=== PATIENT | male | born 1960 | race Two or more races ===

== ENCOUNTER 2020-07-21 18:23 | Emergency (ER) | payer OTHER, SELFPAY ==
[2020-07-21 18:33] VITALS: BP 170/90; PULSE 74; RESP 20; TEMP 36.6; O2SAT 98; BMI 28.3
--- NOTE | 2020-07-21 19:00 | XR_ITS ---
EXAMINATION: XR ELBOW, RIGHT CLINICAL INFORMATION: Fall. COMPARISON: None TECHNIQUE: Three views of the right elbow. No true lateral view was performed. FINDINGS: The bones and soft tissues are normal. There is no fracture. Alignment is anatomic. Joint spaces are maintained. XR/XR elbow RT min 3V IMPRESSION: No acute abnormality of the right elbow.
--- NOTE | 2020-07-21 19:00 | XR_ITS ---
EXAMINATION: XR SHOULDER, RIGHT CLINICAL INFORMATION: Fall. Pain. COMPARISON: None TECHNIQUE: Three views of the right shoulder. FINDINGS: There is anterior dislocation of the humeral head relative to glenoid. There is a Hill-Sachs impaction fracture deformity of the superolateral humeral head there are a few small calcifications or bone fragments adjacent to the fracture which may be chip fracture fragments or tendon calcification. The acromioclavicular joint is normal. XR/XR shoulder RT min 2V IMPRESSION: Anterior dislocation of the humerus. Hill-Sachs impaction fracture deformity of the superolateral humeral head.
--- NOTE | 2020-07-21 19:25 | XR_ITS ---
EXAMINATION: XR SHOULDER, RIGHT CLINICAL INFORMATION: Shoulder dislocation reduction COMPARISON: Prior exam of the right shoulder today TECHNIQUE: Single frontal view portable of the right shoulder. FINDINGS: Previously seen shoulder dislocation has been successfully reduced. Hill-Sachs impaction fracture of the superolateral humeral head again redemonstrated. There are small ossification or calcification adjacent to the fracture site which could be multiple small chip fractures versus tendon calcification. XR/XR shoulder RT 1V IMPRESSION: Successful reduction of shoulder dislocation.
--- NOTE | 2020-07-21 19:27 | PC.NURSE ---
PT LEFT SHOULDER PUT BACK INTO PLACE PER ALTAGRACIA MAURO. IMMOBILIZER IN PLACE REPEAT IMAGING SHOWED SHOULDER BACK INTO JOINT.
--- NOTE | 2020-07-21 19:31 | ED.EXTPRO ---
HPI - Extremity Problem General Chief complaint: Extremity Injury, Upper Stated complaint: ?dislocated shoulder Time Seen by Provider: 07/21/20 19:00 Source: patient Mode of arrival: ambulatory Limitations: no limitations History of Present Illness HPI Narrative: 59-year-old male who denies any significant past medical history presents ambulatory via triage with complaint of right shoulder pain. States he was him to recycle [employer] step console tripped and fell onto his right elbow pushing density shoulder feel like he dislocated his right shoulder. He denies hitting head. Denies any other injury. Denies any hand, wrist, neck had torso back lower extremity injury. MD Complaint: extremity pain Related Data Allergies Allergy/AdvReac Type Severity Reaction Status Date / Time penicillin V Allergy Unknown rash Verified 10/16/19 00:00 Review of Systems Review of Systems: Constitutional: No Weight loss, No Fever, No Chills, No Night Sweats, No Fatigue, No Malaise ENT/Mouth: No Hearing loss, No Ear Pain, No Nasal Congestion, No Sinus Pain, No Hoarseness, No sore throat, No Rhinorrhea, No Swallowing Difficulty Eyes: No Eye Pain, No Swelling, No Redness, No Foreign Body, No Discharge, No Vision Changes Cardiovascular: No Chest Pain, No SOB, No Dyspnea on Exertion, No Orthopnea, No Edema, No Palpitations Respiratory: No Cough, No Sputum, No Wheezing, No Smoke Exposure, No Dyspnea Gastrointestinal: No Nausea, No Vomiting, No Diarrhea, No Constipation, No abdominal Pain, No Hematochezia, No Melena Genitourinary: No Dysuria, No Urinary Frequency, No Hematuria, No Urinary Incontinence Musculoskeletal: No joint pain, No Myalgias, No Joint Swelling Skin: No Skin Lesions, No rash Neuro: No Weakness, No Numbness, No Paresthesias, No Loss of Consciousness, No Dizziness, No Headache Psych: No Social Issues Heme/Lymph: No Bruising, No Bleeding,No Lymphadenopathy Endocrine: No Polyuria, No Polydipsia, No Temperature Intolerance Yes all other systems are reviewed and are negative [facility] Social History Social History Alcohol intake: current Alcohol intake frequency: 0-2 drinks per day Alcohol type: beer Smoked in Last 30 Days: No Use of substances other than those prescribed or required for medical reasons: No Advance Directives: No Advance Directives Information Provided: No Physical Exam Vital Signs: Vital Signs: Last Vital Signs Temp 98.1 F 07/21/20 19:50 Pulse 68 07/21/20 19:50 Resp 16 07/21/20 19:50 BP 142/89 H 07/21/20 19:50 Pulse Ox 94 07/21/20 19:50 Body Mass Index 28.3 Reviewed Const: General: cooperative and healthy appearing; No acute distress or intoxicated appearing Nutritional Appearance: average body habitus Orientation/consciousness: patient oriented x3 HENMT: Head: Yes normal to inspection Ears: hearing grossly normal bilaterally Eyes: General: appearance normal, both eyes and all related structures Visual Pritchett: normal visual pritchett by confrontation Neck: Neck: Yes normal visual inspection, No positive Brudzinski's sign, No positive Kernig's sign and No tender Thyroid: Thyroid normal Chest: Chest palpation & inspection: normal inspection of the chest Resp: Effort & Inspection: normal respiratory effort Cardio: Jugular venous distension: no JVD GI: Inspection: Yes normal to inspection Percussion: Yes normal to percussion Auscultation: normal bowel sounds : General: Yes no CVA tenderness Back/Spine/Pelvis: Back: no CVA tenderness Skin: General skin exam: no rashes or lesions noted Neuro: General: patient oriented x3 Extrem: General: Yes normal to inspection Right upper extremity: shoulder/upper arm Details: tenderness and abnormal ROM (Probable more anteriorly consistent with anterior dislocation) Course Course Course Narrative: Successful reduction of the right shoulder anterior dislocation, Hill-Sachs impaction fracture placed in a sling. Case discussed with Orthopedic recommendation for sling and outpatient follow-up in office. Findings/plan reviewed with patient. Agreeable. Stable for discharge. Procedures Orthopedic Joint Reduction Joint #1: Side: right Joint Reduction Location: shoulder Shoulder Technique Used (if applicable): traction/counter-traction and external rotation Technique used: traction/counter-traction Post-reduction neuro exam: intact Post-reduction vascular: intact Post Reduction X-Ray Obtained: Yes Post Reduction X-Ray Results: reduced Splint Applied: Yes Patient Tolerated Procedure: well Additional Comments: Evaluate patient ordered upon arrival x-ray done showed dislocation with Hill-Sachs type fracture. Moved to bed 18 for sedation for reduction her he initially wanted me to try this without sedation or medication to see if you do well as he likes to avoid medication and with single smooth traction/counter traction external rotation of the shoulder this was reduced with ease. Post reduction x-rays were done. MDM - Extremity (Nontraumatic) Imaging Data Elbow/shoulder x-ray: Radiologist's impression: [address] [address] XRay Report Signed Patient: Humberto PorterMR#: [id number] : 9Acct:[id number] Age/Sex: 59 / MADM Date: 07/21/20 Loc: [facility].ED Attending Dr: Ordering Physician: Pollo Arnett NP Date of Service: 07/21/20 Procedure(s): XR elbow RT min 3V Accession Number(s): [id number] cc: Pollo Arnett RESEARCH TECHNOLOGIST~ EXAMINATION: XR ELBOW, RIGHT CLINICAL INFORMATION: Fall. COMPARISON: None TECHNIQUE: Three views of the right elbow. No true lateral view was performed. FINDINGS: The bones and soft tissues are normal. There is no fracture. Alignment is anatomic. Joint spaces are maintained. XR/XR elbow RT min 3V IMPRESSION: No acute abnormality of the right elbow. Right shoulder Impression; Anterior dislocation of the humerus. Hill-Sachs impaction fracture deformity of the superior lateral humeral head. Dictated By:BUDDY REEDER MD Signed By:<Electronically signed by BUDDY REEDER MD in OV>07/21/202002 DD/ 99 TD/TT: Freelance Web Designer: VIANEY Post reduction shoulder x-ray: Radiologist's impression: [address] [address] XRay Report Signed Patient: Humberto PorterMR#: [id number] : 9Acct:[id number] Age/Sex: 59 / MADM Date: 07/21/20 Loc: HO.ED Attending Dr: Ordering Physician: Pollo Arnett NP Date of Service: 07/21/20 Procedure(s): XR shoulder RT 1V Accession Number(s): [id number] cc: Pollo Arnett RESEARCH TECHNOLOGIST~ EXAMINATION: XR SHOULDER, RIGHT CLINICAL INFORMATION: Shoulder dislocation reduction COMPARISON: Prior exam of the right shoulder today TECHNIQUE: Single frontal view portable of the right shoulder. FINDINGS: Previously seen shoulder dislocation has been successfully reduced. Hill-Sachs impaction fracture of the superolateral humeral head again redemonstrated. There are small ossification or calcification adjacent to the fracture site which could be multiple small chip fractures versus tendon calcification. XR/XR shoulder RT 1V IMPRESSION: Successful reduction of shoulder dislocation. Dictated By:BUDDY REEDER MD Signed By:<Electronically signed by BUDDY REEDER MD in OV>07/21/202023 DD/ 24 TD/TT: Freelance Web Designer: VIANEY Discharge Plan Discharge Clinical Impression: Anterior shoulder dislocation Qualifiers: Encounter type: initial encounter Laterality: right Qualified Code(s): S43.014A - Anterior dislocation of right humerus, initial encounter Closed Hill-Sachs fracture Qualifiers: Encounter type: initial encounter Laterality: right Qualified Code(s): S42.291A - Other displaced fracture of upper end of right humerus, initial encounter for closed fracture Patient Disposition: Home, Self-Care Instructions: Closed Reduction (ED), Arm Fracture in Adults (ED) Additional Instructions: Ice, elevate Use sling for comfort Leave in place until you follow-up with orthopedics Called orthopedics tomorrow to follow-up on Saturday or Saturday Tylenol or ibuprofen for pain or discomfort [id number] Thank you Referrals: Huseyin Mtz MD [Physician] - 3 days
[2020-07-21 19:50] VITALS: BP 142/89; PULSE 68; RESP 16; TEMP 36.7; O2SAT 94
== END 2020-07-21 21:01 | disposition home or self-care (01) ==
PROVIDERS: Emergency Provider Internal Medicine; PCP Internal Medicine
DX: S43.014A Anterior dislocation of right humerus, initial encounter (principal); S42.291A Other displaced fracture of upper end of right humerus, initial encounter for closed fracture; W01.198A Fall on same level from slipping, tripping and stumbling with subsequent striking against other object, initial encounter; Y93.89 Activity, other specified; Y92.480 Sidewalk as the place of occurrence of the external cause; Y99.9 Unspecified external cause status
CPT/HCPCS: 23650; 73020; 73030; 73080; 99284

== ENCOUNTER → 2020-07-26 12:37 | Outpatient (BNVA) | payer OTHER, SELFPAY | PROVIDERS: PCP Internal Medicine; Visit Provider Physician Assistant | DX: Z76.89 Persons encountering health services in other specified circumstances (principal) ==

== ENCOUNTER 2020-08-26 09:38 | Outpatient (REF) | payer OTHER, SELFPAY ==
--- NOTE | 2020-08-26 09:43 | XR_ITS ---
EXAMINATION: XR SHOULDER, RIGHT CLINICAL INFORMATION: Right shoulder dislocation. COMPARISON: None TECHNIQUE: AP external rotation, Grashey, scapular Y, and axillary views of the right shoulder. FINDINGS: There is no visible acute fracture, dislocation or subluxation seen. There are small enthesophytes along the greater tuberosity. There is inferior AC joint moderate spurring. The soft tissues are normal. The AC joint is normal. XR/XR shoulder RT min 2V IMPRESSION: Moderate inferior AC joint spurring. No visible acute fracture or dislocation seen.
== END 2020-08-26 09:39 | disposition home or self-care (01) ==
LOC: HO.XRAY 09:38
PROVIDERS: PCP Internal Medicine; Visit Provider Physician Assistant
DX: S43.004A Unspecified dislocation of right shoulder joint, initial encounter (principal); X58.XXXA Exposure to other specified factors, initial encounter; Y93.9 Activity, unspecified; Y92.9 Unspecified place or not applicable; Y99.8 Other external cause status; F17.210 Nicotine dependence, cigarettes, uncomplicated
CPT/HCPCS: 73030

== ENCOUNTER → 2020-09-28 09:53 | Outpatient (BNVA) | payer OTHER, SELFPAY | PROVIDERS: Visit Provider Physician Assistant ==

== ENCOUNTER 2021-08-26 08:56 | Outpatient (REF) | payer OTHER, SELFPAY ==
[2021-08-26 11:16] LABS: MANUAL DIFF FLAG NO
[2021-08-26 11:22] LABS: Basophils Absolute Auto 0.1 X10*3/uL (0.0-0.2); Basophils Percent Auto 0.7 % (0-2); Eosinophils Absolute Auto 0.2 X10*3/uL (0.0-0.4); Eosinophils Percent Auto 2.6 % (0-4); Hemoglobin 16.2 g/dl (14.0-18.0); Imm Gran Abs Auto 0.09 X10*3/uL (0.00-0.03); Imm Gran Pct Auto 1.1 % (0.0-0.4); Lymphocytes Absolute Auto 2.5 X10*3/uL (1.2-4.9); Lymphocytes Percent Auto 29.8 % (20-40); Mean Corpuscular HGB Conc 33.1 g/dl (31.0-36.0); Mean Corpuscular Hemoglobin 29.7 pg (27.0-33.0); Mean Corpuscular Volume 89.9 fL (80.0-98.0); Mean Platelet Volume 9.8 fL (9.4-12.4); Monocytes Absolute Auto 1.1 X10*3/uL (0.1-1.2); Monocytes Percent Auto 12.6 % (2-11); Neutrophils Absolute Auto 4.5 x10*3/uL (2.0-8.3); Neutrophils Percent Auto 53.2 % (45-73); Platelet Count 209 X10*3/uL (160-400); Red Blood Count 5.45 X10*6/uL (4.60-5.80); Red Cell Distribution Width 13.8 % (11.0-16.0); White Blood Count 8.4 X10*3/uL (4.8-10.8)
[2021-08-26 11:56] LABS: Alanine Aminotransferase 50 U/L (0-40); Albumin Level 4.4 g/dL (3.5-5.0); Alkaline Phosphatase 79 U/L (39-117); Anion Gap 13 (12-20); Aspartate Amino Transferase 40 U/L (5-37); Bilirubin Total 1.1 mg/dL (0.0-1.0); Blood Urea Nitrogen 16 mg/dL (9-16); Calcium 9.5 mg/dL (8.4-10.2); Carbon Dioxide 27 mmol/L (22-29); Chloride 100 mmol/L (96-108); Cholesterol 173 mg/dL; Estimated Glomerular Filt Rate > 60; Glucose Fasting 110 mg/dL (60-99); HDL Cholesterol 33 mg/dL; LDL Cholesterol Calculated 112 mg/dl; Potassium 4.9 mmol/L (3.3-5.1); Sodium 135 mmol/L (135-145); Total Protein 7.7 g/dL (6.5-8.0); Triglycerides 144 mg/dL
[2021-08-26 12:17] LABS: Vitamin D 25-OH Total 28.1 ng/mL (>30)
== END 2021-08-26 08:57 | disposition home or self-care (01) ==
LOC: HO.HMGCLDS 08:56
PROVIDERS: Visit Provider Internal Medicine
DX: Z00.01 Encounter for general adult medical examination with abnormal findings (principal); Z12.5 Encounter for screening for malignant neoplasm of prostate; E78.2 Mixed hyperlipidemia; I10 Essential (primary) hypertension; R73.01 Impaired fasting glucose
CPT/HCPCS: 36415; 80053; 80061; 82306; 84153; 85025

== ENCOUNTER 2022-12-15 06:42 | Outpatient (REF) | payer OTHER, SELFPAY ==
[2022-12-15 11:38] LABS: Estimated Average Glucose 120 mg/dL; Hemoglobin A1c % 5.8 %
[2022-12-15 11:51] LABS: Alanine Aminotransferase 75 U/L (0-40); Albumin Level 4.5 g/dL (3.5-5.0); Alkaline Phosphatase 78 U/L (39-117); Anion Gap 14 (12-20); Aspartate Amino Transferase 53 U/L (5-37); Bilirubin Total 1.4 mg/dL (0.0-1.0); Blood Urea Nitrogen 17 mg/dL (9-16); Calcium 9.3 mg/dL (8.4-10.2); Carbon Dioxide 23 mmol/L (22-29); Chloride 103 mmol/L (96-108); Cholesterol 199 mg/dL; Estimated Glomerular Filt Rate > 60; Glucose Fasting 123 mg/dL (60-99); HDL Cholesterol 33 mg/dL; LDL Cholesterol Calculated 124 mg/dl; Potassium 4.8 mmol/L (3.3-5.1); Sodium 135 mmol/L (135-145); Total Protein 7.5 g/dL (6.5-8.0); Triglycerides 210 mg/dL
[2022-12-15 12:10] LABS: PSA,Total (Free>4and<10) 0.61 ng/mL (0.00-4.00); Vitamin D 25-OH Total 22.4 ng/mL (>30)
== END 2022-12-15 06:43 | disposition home or self-care (01) ==
LOC: HO.HMGCLDS 06:42
PROVIDERS: PCP Internal Medicine; Visit Provider Internal Medicine
DX: Z00.01 Encounter for general adult medical examination with abnormal findings (principal); Z12.5 Encounter for screening for malignant neoplasm of prostate; I10 Essential (primary) hypertension; R73.01 Impaired fasting glucose; E55.9 Vitamin D deficiency, unspecified; E78.2 Mixed hyperlipidemia
CPT/HCPCS: 36415; 80053; 80061; 82306; 83036; 84153

== ENCOUNTER 2023-05-15 06:26 | Outpatient (REF) | payer OTHER, SELFPAY ==
[2023-05-15 11:44] LABS: Estimated Average Glucose 117 mg/dL; Hemoglobin A1c % 5.7 % (<6.0)
[2023-05-15 12:03] LABS: Alanine Aminotransferase 76 U/L (0-40); Albumin Level 4.2 g/dL (3.5-5.0); Alkaline Phosphatase 77 U/L (39-117); Anion Gap 14 (12-20); Aspartate Amino Transferase 52 U/L (5-37); Bilirubin Total 0.6 mg/dL (0.0-1.0); Blood Urea Nitrogen 11 mg/dL (9-16); Calcium 9.2 mg/dL (8.4-10.2); Carbon Dioxide 22 mmol/L (22-29); Chloride 104 mmol/L (96-108); Cholesterol 177 mg/dL (<200); Estimated Glomerular Filt Rate > 60; Gamma Glutamyl Transpeptidase 145 U/L (11-51); Glucose Fasting 131 mg/dL (60-99); HDL Cholesterol 31 mg/dL (>40); LDL Cholesterol Calculated 98 mg/dL (<100); Potassium 4.3 mmol/L (3.3-5.1); Sodium 136 mmol/L (135-145); Total Protein 7.4 g/dL (6.5-8.0); Triglycerides 242 mg/dL (<150)
[2023-05-15 12:21] LABS: Vitamin D 25-OH Total 38.3 ng/mL (>30)
== END 2023-05-15 06:27 | disposition home or self-care (01) ==
LOC: HO.CHCLDS 06:26
PROVIDERS: Visit Provider Internal Medicine
DX: F10.90 Alcohol use, unspecified, uncomplicated (principal); E55.9 Vitamin D deficiency, unspecified; I10 Essential (primary) hypertension; R73.01 Impaired fasting glucose; E78.2 Mixed hyperlipidemia
CPT/HCPCS: 36415; 80053; 80061; 82306; 82977; 83036

== ENCOUNTER 2023-05-15 09:32 | Outpatient (AMB) | payer OTHER, SELFPAY ==
--- NOTE | 2023-05-15 10:11 | A.OFFPC_ITS ---
Vital Signs 05/15/23 10:13 Height 5 ft 4 in Weight 181 lb BMI 31.1 BP 135/70 Blood Pressure Location Rt brachial Position Sitting Pulse 79 Pulse Source Pulse Oximeter Pulse Oximetry (%) 97 Oxygen Delivery Method Room Air Intake Visit Reasons: 6 month Follow up Intake Note: Pt is here today for a 6 mo. f/u: Pt had labs done this morning Allergies penicillin V Allergy (Unknown, Verified 05/15/23 10:39) rash Medication List - Last Reconciled 05/15/23 by Sridevi Garcia MD lisinopril 20 mg PO DAILY Tobacco use date assessed: 05/15/23 Dental Screening Dental Screen Date: 05/15/23 Did you have a dental visit in the last 12 months?: No Was dental information given to patient?: No HPI 6 month Follow up HPI Details 63-year-old male with hypertension, impa ired fasting glucose and mixed dyslipidemia, today for follow-up. He states that he has been feeling well, but admits to not following any particular diet nor has she been getting any regular exercise except from what he does at work. He continues to drink daily at least 2 beers a day. Latest fasting labs showed elevated fasting glucose but hemoglobin A1c within normal limits, fasting lipids are within normal limits except for elevated triglycerides and noted to have persistently elevated transaminase levels and elevated GGT. [facility] Medical History (Updated 02/16/24 @ 16:07 by Sridevi Garcia MD) Elevated serum GGT level Elevated transaminase level Dislocation of right shoulder joint Alcohol use disorder Skin lesion of foot Vitamin D deficiency Annual visit for general adult medical examination with abnormal findings Impaired fasting glucose Mixed dyslipidemia Essential hypertension Surgical History Hx of colonoscopy History of appendectomy Family History Other Substance use disorder Social History Housing: House Alcohol intake: current Alcohol intake frequency: 0-2 drinks per day Alcohol type: beer Patient Tobacco Use Status: Current everyday Tobacco user Cigarette Packs Per Day: 0.5 e-Cigarette/Vaping Use: Never Used Current occupational status: employed Current occupation: lt handed, picking and packing Cognitive needs: No Hearing needs: No Vision needs: No Questionnaire Thrive Questionnaire Date Thrive assessed: 12/14/22 MIRIAN-7 AMB Questionnaire MIRIAN-7 Date MIRIAN - 7 assessed: 12/14/22 Source: Developed by Drs. Carlos Hernandez, Jessica Wilson, Jonny Blackwell and colleagues, with an educational zoie from [employer]. Review of Systems Const Denies fatigue, Denies fever(s), Denies headache(s) and Denies weakness Eyes Denies change in vision ENT Denies dizziness, Denies headache(s), Denies nasal congestion, Denies nasal discharge and Denies sore throat Card Denies chest pain, Denies lightheadedness, Denies palpitations and Denies dyspnea Resp Denies chest congestion, Denies cough, Denies dyspnea and Denies wheezing GI Denies abdominal pain, Denies change in bowel habits and Denies heartburn Denies dysuria, Denies urinary frequency and Denies urinary urgency Musc Reports arthralgias (Right shoulder, followed by ortho) and Reports stiffness Skin/Breast Denies lesions and Denies rash Neuro Denies dizziness, Denies headache(s) and Denies weakness Psych Reports as per HPI Endo Denies fatigue, Denies polydipsia, Denies polyuria and Denies palpitations Sergio/Lymph Denies easy bruising Aller/Immun Denies seasonal rhinorrhea and Denies wheezing Physical exam (Primary Care) Vital Signs: Last Vital Signs Pulse 79 05/15/23 10:13 BP 135/70 05/15/23 10:13 Pulse Ox 97 05/15/23 10:13 Oxygen Delivery Method Room Air 05/15/23 10:13 BMI result Body Mass Index 31.1 Tobacco/Smoking Status: Tobacco use Status Tobacco use date assessed 05/15/23 05/15/23 10:14 Patient Tobacco Use Status Current everyday Tobacco 05/15/23 10:11 e-Cigarette/Vaping Use Never Used 05/15/23 10:11 Thrive Assessment: Date of Thrive Assessment Date Thrive assessed 12/14/22 05/15/23 10:11 Const General: comfortable, no acute distress and alert Nutritional Appearance: obese Orientation/consciousness: patient oriented x3 HENMT Head: Yes normocephalic Ears: hearing grossly normal bilaterally, external ears normal, TM's normal bilaterally and EAC's normal General nose exam: Normal external nose present Face and sinus: Yes face symmetric Mouth: Normal oral and palatal mucosa present and moist mucous membranes Eyes General: appearance normal, both eyes and all related structures Neck Neck: Yes full ROM and Yes no lymphadenopathy Thyroid: Thyroid normal Resp Effort & Inspection: normal respiratory effort and able to speak in complete sentences Auscultation: clear to auscultation bilaterally Cardio Rate: regular rate Rhythm: regular rhythm Heart sounds: S1 normal heart sound present and S2 normal heart sound present GI Inspection: Yes obesity Palpation (GI): Soft to palpation, nontender, no guarding and no masses Auscultation: normal bowel sounds General: Yes no CVA tenderness Male General Exam: Yes normal external exam Back/Spine/Pelvis Back: no CVA tenderness and No back tenderness Neuro General: patient oriented x3, gait normal, moves all extremities, Normal light touch and pain sensation, no focal motor deficits and CN's II-XI intact bilaterally Extrem General: Yes full ROM, Yes no joint enlargement, Yes no clubbing, cyanosis or edema, Yes no calf tenderness and Yes normal gait Psych Appearance: grossly normal Mental Status: mental status grossly normal Speech and movement: Normal speech and movement present Affect: normal affect Attitude: cooperative Thought process: Normal thought process present Results Reviewed Results Reviewed: Name: Humberto Porter Age/Sex: 62/M : 1960 Unit#: [id number] Attend Dr: Sridevi Garcia MD Re05/15/23 Status: DEP REF Location: [facility] Disch: SPEC : [id number] KATHRINE: 05/15/23 STATUS: COMP REQ : [id number] RECD: 05/15/[address]: Sridevi Garcia MD COMP: 05/15/231 ENTERED: 05/15/[address]: ORDERED: CMP Fast, GGT, Lipid Panel, Vitamin D 25-OH Test Result Flag Reference Sodium 136 135-145 mmol/L Potassium 4.3 3.3-5.1 mmol/L CL 104 96-108 mmol/L CO2 22 22-29 mmol/L Gap 14 12-20 BUN 11 9-16 mg/dL Creat 0.74 0.5-1.4 mg/dL EGFR > 60 NOTE: For -Marshallese individuals, multiply the result by 1.210. Chronic Kidney Disease: Estimated GFR < 60 mL/min/1. 73m2 Severe Kidney Disease: Estimated GFR < 15 mL/min/1.73m2 FBS 131 H 60-99 mg/dL A fasting glucose of 126 mg/dl or greater on more than one occasion is considered diagnostic of diabetes. CA 9.2 8.4-10.2 mg/dL Total Bili 0.6 0.0-1.0 mg/dL GGT 145 H 11-51 U/L AST (GOT) 52 H 5-37 U/L ALT (GPT) 76 H 0-40 U/L Protein, Total 7.4 6.5-8.0 g/dL Alb 4.2 3.5-5.0 g/dL Triglyceride 242 H <150 mg/dL Desirable Triglyceride: less than 150 mg/dL Borderline High Triglyceride 150-199 mg/dL High Triglyceride: 200-499 mg/dL Very High Triglyceride: greater than or equal to 5OO mg/dL Cholesterol 177 <200 mg/dL Desirable Cholesterol: less than 200 mg/dL Borderline High Cholesterol: 200-239 mg/dL High Cholesterol: greater than 239 mg/dL LDL Calculated 98 <100 mg/dL Desirable LDL: less than 100 mg/dL Near Optimal/Above Optimal LDL: 110-129 mg/dL Borderline High LDL: 130-159 mg/dL High LDL: 160-189 mg/dL Very High LDL: greater than or equal to 190 mg/dL HDL 31 L >40 mg/dL Desirable HDL: greater than 40 mg/dL Note: This HDL assay may give artificially low results in patients with liver disease. Alk Phos 77 39-117 U/L Vit D 25-OH Tot 38.3 >30 ng/mL Health Based Reference Values* < 20 ng/mL Deficient 20-30 ng/mL Insufficient > 30 ng/mL Sufficient Laboratory Tests 05/15/23 06:38 Estimat Average Glucose 117 Hemoglobin A1c % 5.7 Elevated GGT elevated GGT Assessment and Plan Assessment & Plan (1) Essential hypertension: Code(s): I10 - Essential (primary) hypertension Plan: Blood pressure at goal of less than 130/80. Continue with lisinopril 20 mg daily. Reinforced importance of following a low sodium diet, avoidance of alcohol use, getting regular exercise, and lowering stress levels. (2) Mixed dyslipidemia: Code(s): E78.2 - Mixed hyperlipidemia Plan: Reviewed recent fasting lipid profile with patient with levels within normal limits except for elevated triglycerides . Stressed importance of abstinence from alcohol, in addition to adherence to low-cholesterol diet and regular exercise, at least 30 minutes 3 to 4 times a week. Advised patient to make healthy food choices, eat more fruits, vegetables, whole grains, wild caught fish and low-fat dairy. Limit amount of meat and fried or fatty food products, as well as processed foods and fast foods. (3) Impaired fasting glucose: Code(s): R73.01 - Impaired fasting glucose Plan: Your previous fasting blood sugars were elevated above 100 mg/dL. Latest labs showed hemoglobin A1c within normal limits. Impaired glucose metabolism increases the risk for developing diabetes mellitus type 2, as well as heart attack and stroke later on. Lifestyle changes that promotes weight loss, avoidance of alcohol, healthy eating habits, and regular exercise are important, and can prevent the progression to diabetes (4) Elevated transaminase level: Code(s): R74.01 - Elevation of levels of liver transaminase levels Plan: Advise patient to cut back or abstain from all alcohol use as recent labs showed presence of liver damage likely from alcohol use, and increases risk for developing pancreatitis later (5) Elevated serum GGT level: Code(s): R74.8 - Abnormal levels of other serum enzymes Plan: Advised patient to abstain will start slowly cutting back from all alcohol use, as recent labs showed presence of liver damage likely from alcohol use, which also increases risk for pancreatitis (6) Alcohol use disorder: Code(s): F10.90 - Alcohol use, unspecified, uncomplicated Orders: Orders Hemoglobin A1c 12/11/23 E55.9 - Vitamin D deficiency, unspecified, R73.01 - Impaired fasting glucose, F10.90 - Alcohol use, unspecified, uncomplicated, E78.2 - Mixed hyperlipidemia, I10 - Essential (primary) hypertension Lipid Panel 12/11/23 E55.9 - Vitamin D deficiency, unspecified, R73.01 - Impaired fasting glucose, F10.90 - Alcohol use, unspecified, uncomplicated, E78.2 - Mixed hyperlipidemia, I10 - Essential (primary) hypertension Vitamin D 25-OH Total 12/11/23 E55.9 - Vitamin D deficiency, unspecified, R73.01 - Impaired fasting glucose, F10.90 - Alcohol use, unspecified, uncomplicated, E78.2 - Mixed hyperlipidemia, I10 - Essential (primary) hypertension Comprehensive Gill. Panel Fast 12/11/23 E55.9 - Vitamin D deficiency, unspecified, R73.01 - Impaired fasting glucose, F10.90 - Alcohol use, unspecified, uncomplicated, E78.2 - Mixed hyperlipidemia, I10 - Essential (primary) hypertension Medications: Refilled lisinopril 20 mg PO DAILY 90 tabs 3RF I10 - Essential (primary) hypertension Coding Level of Care Code Est Pt Level 4 (65926) Diagnoses Essential hypertension I10 Mixed dyslipidemia E78.2 Impaired fasting glucose R73.01 Elevated transaminase level R74.01 Elevated serum GGT level R74.8 Alcohol use disorder F10.90
[2023-05-15 10:13] VITALS: BP 135/70; PULSE 79; O2SAT 97; BMI 31.1
== END 2023-05-15 11:38 | disposition home or self-care (01) ==
PROVIDERS: Visit Provider Internal Medicine
DX: I10 Essential (primary) hypertension (principal); E78.2 Mixed hyperlipidemia; R73.01 Impaired fasting glucose; R74.01 Elevation of levels of liver transaminase levels; R74.8 Abnormal levels of other serum enzymes; F10.90 Alcohol use, unspecified, uncomplicated
CPT/HCPCS: 99499

== ENCOUNTER 2024-06-17 11:54 | Outpatient (AMB) | payer OTHER, SELFPAY ==
--- NOTE | 2024-06-17 12:00 | A.OFFVIS_ITS ---
Intake Vital Signs 06/17/24 12:12 Height 5 ft 4 in Weight 186 lb 2 oz BMI 31.9 BP 158/92 H Blood Pressure Location Rt brachial Position Sitting Pulse 88 Pulse Source Pulse Oximeter Pulse Oximetry (%) 96 Oxygen Delivery Method Room Air Intake Visit Reasons: MICHAEL G0438 Allergies penicillin V Allergy (Unknown, Verified 06/17/24 12:34) rash Medication List - Last Reconciled 06/17/24 by Sridevi Garcia MD lisinopril 20 mg PO DAILY Do you need a note to return to daycare/school/sports/work: No HPI SWV G0438 HPI Details AWV ? year old presents for her ? Annual Wellness Visit, initial visit.? Medical / Social History Reviewed? Past Medical History ?Yes . ? [place] of Care / Care Team list updated ?Yes . ? Surgical/Hospitalization History ?Yes . ? Current Medications (including OTC and supplements) ?Yes . ? Family History ?Yes . ? Tobacco Control form ?Yes . ? AUDIT-C (Alcohol use) form ?Yes . ? Illicit drug use in Social History ?Yes . ? Current diagnosis of depression? ?No ? Appropriate PHQ2/PHQ9 completed ?Yes . ? Data entered by ?Vp Director Of Finance and reviewed by provider ? Fall Risk ? Fall History? Have you had any falls with injury in the past year? ?No . ? Have you had two or more falls in the past year? ?No . ? Fall Risk Assessment: ?No falls in the past year . ? HRA filled out by the patient, reviewed by Provider and scanned. ?AWV ? Balance? Romberg ?Yes . ? Tandem walk ?Yes . ? Walk and Turn ?Yes . ? Rise from sit to stand ?Yes . ?Vision? Corrective lens ?Yes ? Vision screen ? Up-to-date, has an appointment Dr. Zurita 12/20/2020 for her vision screening and glaucoma screening ?Hearing? Whisper test ?pass . ?Written Plan?Completed. See Patient Documents.? [facility] Medical History (Updated 02/16/24 @ 16:07 by Sridevi Garcia MD) Elevated serum GGT level Elevated transaminase level Dislocation of right shoulder joint Alcohol use disorder Skin lesion of foot Vitamin D deficiency Annual visit for general adult medical examination with abnormal findings Impaired fasting glucose Mixed dyslipidemia Essential hypertension Surgical History Hx of colonoscopy History of appendectomy Family History Other Substance use disorder Social History Housing: House Alcohol intake: current Alcohol intake frequency: 0-2 drinks per day Alcohol type: beer Patient Tobacco Use Status: Current everyday Tobacco user Cigarette Packs Per Day: 0.5 e-Cigarette/Vaping Use: Never Used Current occupational status: employed Current occupation: lt handed, picking and packing Cognitive needs: No Hearing needs: No Vision needs: No Questionnaire Medicare Wellness Checkup [age] What gender do you identify with?: male During the past 4 weeks, how much have you been bothered by emotional problems such as feeling anxious, depressed, irritable, sad or downhearted, and blue?: not at all During the past 4 weeks, has your physical & emotional health limited your social activities with family, friends, neighbors, or groups?: not at all During the past 4 weeks, how much bodily pain have you generally had?: moderate pain During the past 4 weeks, was someone available to help you if you needed & wanted help?: yes, as much as I wanted During the past 4 weeks, what was the hardest physical activity you could do for at least 2 minutes?: heavy Can you get to places out of walking distance without help? (For eg., can you travel alone on buses, taxis or drive your car?): Yes Can you go shopping for groceries or clothes without someone's help?: Yes Can you prepare your own meals?: Yes Can you do your housework without help?: Yes Because of any health problems, do you need the help of another person with your personal care needs such as eating, bathing, dressing or getting around the house?: No Can you handle your own money without help?: Yes During the past 4 weeks, how would you rate your health in general?: fair During the past 4 weeks how have things been going for you?: good & bad parts about equal Are you having difficulties driving your car?: no Do you always fasten your seat belt when you are in a car?: yes, usually During past 4 weeks, have you been bothered by the following: never: Falling or dizzy when standing up, Sexual problems?, Trouble eating well?, Teeth or denture problems? and Problems using the telephone? and sometimes: Tiredness or fatigue? Have you fallen 2 or more times in the past year?: No Are you afraid of falling?: No Are you a smoker?: yes, but I'm not ready to quit During the past 4 weeks, how many drinks of wine, beer, or other alcoholic beverages did you have?: 10 or more per week Do you exercise for about 20 minutes 3 or more times a week?: no, I usually do not exercise this much Have you been given information to help with the following?: no: Hazards in your house that might hurt you? and no: Keeping track of your medications? How often do you have trouble taking medicines the way you have been told to take them?: I always take medicine as prescribed How confident are you that you can control & manage most of your health problems?: very confident What is your race?: or origin or descent PHQ-9 Over the last 2 weeks, how often have you been bothered by any of the following problems? 1. Little interest or pleasure in doing things: not at all 2. Feeling down, depressed, or hopeless: not at all 3. Trouble falling or staying asleep, or sleeping too much: more than half the days 4. Feeling tired or having little energy: not at all 5. Poor appetite or overeating: not at all 6. Feeling bad about yourself - or that you are a failure or have let yourself or your family down: not at all 7. Trouble concentrating on things, such as reading the newspaper or watching television: not at all 8. Moving or speaking so slowly that other people could have noticed. Or the opposite - being so fidgety or restless that you have been moving around a lot more than usual: not at all 9. Thoughts that you would be better off or of hurting yourself in some way: not at all Total score: 2 Depression Screening Interpretation: Negative Depression Screening Done: Yes 10136 - PHQ-9 Billing: Yes Source: Developed by Drs. Carlos Hernandez, Jessica Wilson, Jonny Blackwell and colleagues, with an educational zoie from [facility]. Physical Exam Vital Signs: Last Vital Signs Pulse 88 06/17/24 12:12 BP 158/92 H 06/17/24 12:12 Pulse Ox 96 06/17/24 12:12 Oxygen Delivery Method Room Air 06/17/24 12:12 BMI result Body Mass Index 31.9 Quality Reporting (2019) Depression/Bipolar (159/160/161/177) PHQ-9: Total score: 2 Coding Additional Codes PHQ-9 - 32057 - PHQ-9 Billing: Yes ([id number])
[2024-06-17 12:12] VITALS: BP 158/92; PULSE 88; O2SAT 96; BMI 31.9
--- NOTE | 2024-06-17 12:37 | MHC.PC.OV ---
Vital Signs 06/17/24 12:12 06/17/24 12:48 Height 5 ft 4 in Weight 186 lb 2 oz BMI 31.9 BP 158/92 H 130/80 Blood Pressure Location Rt brachial Rt brachial Position Sitting Sitting Pulse 88 Pulse Source Pulse Oximeter Pulse Oximetry (%) 96 Oxygen Delivery Method Room Air Intake Visit Reasons: Follow-up hypertension Intake Note: Pt is here today for f/u HTN Allergies penicillin V Allergy (Unknown, Verified 06/17/24 12:34) rash Medication List - Last Reconciled 06/17/24 by Sridevi Garcia MD lisinopril 20 mg PO DAILY Tobacco use date assessed: 05/15/23 Dental Screening Dental Screen Date: 05/15/23 HPI HPI Comments History of Present Illness Details 63-year-old male with past medical history significant for hypertension, mixed dyslipidemia, here today for follow-up. He has been taking his medications as directed, tries to follow recommended diet but not successful at times, and does not have any regular exercise at all. Drinks on a regular basis at least 5-6 drinks 4 times a week and smokes at least half a pack of cigarettes daily. Had recent fasting labs done which [facility] History Elevated serum GGT level Elevated transaminase level Dislocation of right shoulder joint Alcohol use disorder Skin lesion of foot Vitamin D deficiency Annual visit for general adult medical examination with abnormal findings Impaired fasting glucose Mixed dyslipidemia Essential hypertension Surgical History Hx of colonoscopy History of appendectomy Family History Other Substance use disorder Social History Housing: House Alcohol intake: current Alcohol intake frequency: 0-2 drinks per day Alcohol type: beer Patient Tobacco Use Status: Current everyday Tobacco user Cigarette Packs Per Day: 0.5 e-Cigarette/Vaping Use: Never Used Current occupational status: employed Current occupation: lt handed, picking and packing Cognitive needs: No Hearing needs: No Vision needs: No Questionnaire Thrive Questionnaire Date Thrive assessed: 12/14/22 AUDIT C Alcohol Use Questionnaire (AUDIT-C) 1. How often do you have a drink containing alcohol?: 4 or more times a week 2. How many drinks containing alcohol do you have on a typical day when you are drinking?: 5 or 6 3. How often do you have six or more drinks on one occasion?: Daily or almost daily Total Score: 10 Score Reviewed/Action Taken: Yes (Patient strongly advised to quit alcohol intake, declines help in quitting ) MIRIAN-7 AMB Questionnaire MIRIAN-7 Date MIRIAN - 7 assessed: 12/14/22 Source: Developed by Drs. Carlos Hernandez, Jessica Wilson, Jonny Blackwell and colleagues, with an educational zoie from [employer]. Review of Systems Const Denies fatigue, Denies fever(s), Denies headache(s) and Denies weakness Eyes Denies change in vision ENT Denies dizziness, Denies headache(s), Denies nasal congestion, Denies nasal discharge and Denies sore throat Card Denies chest pain, Denies lightheadedness, Denies palpitations and Denies dyspnea Resp Denies chest congestion, Denies cough, Denies dyspnea and Denies wheezing GI Denies abdominal pain, Denies change in bowel habits and Denies heartburn Denies dysuria, Denies urinary frequency and Denies urinary urgency Musc Reports arthralgias (Right shoulder, followed by ortho) and Reports stiffness Skin/Breast Denies lesions and Denies rash Neuro Denies dizziness, Denies headache(s) and Denies weakness Psych Reports as per HPI Endo Denies fatigue, Denies polydipsia, Denies polyuria and Denies palpitations Sergio/Lymph Denies easy bruising Aller/Immun Denies seasonal rhinorrhea and Denies wheezing Physical exam (Primary Care) Vital Signs: Last Vital Signs Pulse 88 06/17/24 12:12 BP 130/80 06/17/24 12:48 Pulse Ox 96 06/17/24 12:12 Oxygen Delivery Method Room Air 06/17/24 12:12 BMI result Body Mass Index 31.9 Tobacco/Smoking Status: Tobacco use Status Tobacco use date assessed 05/15/23 06/17/24 12:38 Patient Tobacco Use Status Current everyday Tobacco 06/17/24 12:38 e-Cigarette/Vaping Use Never Used 06/17/24 12:38 Thrive Assessment: Date of Thrive Assessment Date Thrive assessed 12/14/22 06/17/24 12:38 Advance Care Planning discussion: Completed/Scanned Date of discussion: 06/17/24 Who was present: Patient Forms completed: MOLST Time spent: 16-45 minutes Actual minutes spent: 3 Const General: no acute distress and alert Nutritional Appearance: obese Orientation/consciousness: patient oriented x3 HENMT Head: Yes normocephalic Ears: hearing grossly normal bilaterally, external ears normal, TM's normal bilaterally and EAC's normal General nose exam: Normal external nose present Face and sinus: Yes face symmetric Mouth: Normal oral and palatal mucosa present and moist mucous membranes Eyes General: appearance normal, both eyes and all related structures Neck Neck: Yes full ROM and Yes no lymphadenopathy Thyroid: Thyroid normal Resp Effort & Inspection: normal respiratory effort and able to speak in complete sentences Auscultation: clear to auscultation bilaterally Cardio Rate: regular rate Rhythm: regular rhythm Heart sounds: S1 normal heart sound present and S2 normal heart sound present GI Inspection: Yes obesity Palpation (GI): Soft to palpation, nontender, no guarding and no masses Auscultation: normal bowel sounds General: Yes no CVA tenderness Male General Exam: Yes normal external exam Back/Spine/Pelvis Back: no CVA tenderness and No back tenderness Neuro General: patient oriented x3, gait normal, moves all extremities, Normal light touch and pain sensation, no focal motor deficits and CN's II-XI intact bilaterally Extrem General: Yes full ROM, Yes no joint enlargement, Yes no clubbing, cyanosis or edema, Yes no calf tenderness and Yes normal gait Psych Appearance: grossly normal Mental Status: mental status grossly normal Speech and movement: Normal speech and movement present Affect: normal affect Attitude: cooperative Thought process: Normal thought process present Office Procedures Flu Questionnaire Does the patient have a severe egg allergy?: No Does the patient have severe life threatening allergies?: No Does the patient have a fever or illness today?: No Has the patient ever had Guillain-[place] Syndrome?: No Has the patient ever had any past reaction to a flu shot?: No Immunizations Fluarix Triv [id number] (PF) 45 mcg (15 mcg x 3)/0.5 mL IM syringe Performing Provider: Sridevi Garcia MD Performing Location: [facility] Administered by: Sushma Craft CMA on 06/17/24 13:05 Dose Route Admin Location Dispensed Lot Number Expiration Date NDC Fumigator And Sterilizer 0.5 mL IM Left Deltoid 0.5 mL [id number] 02/08/25 [id number] [employer] VIS Given Date VIS Provided VIS Publication Date 06/17/24 Single Vaccine 21 Eligibility Eligibility Date Funding Source Not VFC Eligible 06/17/24 Private Results Reviewed Results Reviewed: Name: Humberto Porter Age/Sex: 63/M : 1960 Unit#: [id number] Attend Dr: Sridevi Garcia MD Re06/18/24 Status: DEP [facility] SPEC : [id number] KATHRINE: 06/18/24 STATUS: COMP REQ : [id number] RECD: 06/18/[address]: Sridevi Garcia MD COMP: 06/18/24 ENTERED: 06/18/[address]: ORDERED: CMP Fast, Lipid Panel, Vitamin D 25-OH Test Result Flag Reference Sodium 135 135-145 mmol/L Potassium 4.2 3.3-5.1 mmol/L CL 101 96-108 mmol/L CO2 24 22-29 mmol/L Gap 14 12-20 BUN 13 9-16 mg/dL Creat 0.73 0.5-1.4 mg/dL EGFR > 60 NOTE: For -[place] individuals, multiply the result by 1.210. Chronic Kidney Disease: Estimated GFR < 60 mL/min/1.73m2 Severe Kidney Disease: Estimated GFR < 15 mL/min/1.73m2 FBS 129 H 60-99 mg/dL A fasting glucose of 126 mg/dl or greater on more than one occasion is considered diagnostic of diabetes. CA 9.8 # 8.4-10.2 mg/dL Total Bili 1.2 H 0.0-1.0 mg/dL AST (GOT) 69 H 5-37 U/L ALT (GPT) 82 H 0-40 U/L Protein, Total 7.8 6.5-8.0 g/dL Alb 4.3 3.5-5.0 g/dL Triglyceride 236 H <150 mg/dL Desirable Triglyceride: less than 150 mg/dL Borderline High Triglyceride 150-199 mg/dL High Triglyceride: 200-499 mg/dL Very High Triglyceride: greater than or equal to 5OO mg/dL Cholesterol 182 <200 mg/dL Desirable Cholesterol: less than 200 mg/dL Borderline High Cholesterol: 200-239 mg/dL High Cholesterol: greater than 239 mg/dL LDL Calculated 104 H <100 mg/dL Desirable LDL: less than 100 mg/dL Near Optimal/Above Optimal LDL: 110-129 mg/dL Borderline High LDL: 130-159 mg/dL High LDL: 160-189 mg/dL Very High LDL: greater than or equal to 190 mg/dL HDL 31 L >40 mg/dL Desirable HDL: greater than 40 mg/dL Note: This HDL assay may give artificially low results in patients with liver disease. Alk Phos 83 39-117 U/L Vit D 25-OH Tot 50.5 >30 ng/mL Health Based Reference Values* < 20 ng/mL Deficient 20-30 ng/mL Insufficient > 30 ng/mL Sufficient Laboratory Tests 05/15/23 06/18/24 06:38 06:33 Estimat Average Glucose 126 Hemoglobin A1c % 6.0 GGT 145 H AST 52 H ALT 76 H Coding Level of Care Code Est Pt Level 4 (36833) Complex EM visit Add On G2211 Diagnoses Elevated serum GGT level R74.8 Elevated transaminase level R74.01 Mixed dyslipidemia E78.2 Essential hypertension I10 Impaired fasting glucose R73.01 Needs flu shot Z23 Advanced directives, counseling/discussion Z71.89 Additional Codes Vital Signs *Quality* - Advance Care Planning discussion: Completed/Scanned ([id number]) Vital Signs *Quality* - Time spent: 16-45 minutes ([id number]) Assessment & Plan Assessment & Plan (1) Elevated serum GGT level: Code(s): R74.8 - Abnormal levels of other serum enzymes Category: Medical Plan: Seen on labs done in 2022. Abdominal ultrasound ordered, patient strongly advised to cut back or quit alcohol intake. (2) Elevated transaminase level: Code(s): R74.01 - Elevation of levels of liver transaminase levels Category: Medical Plan: Liver transaminases increasing. Ordered abdominal ultrasound, strongly advised to cut back or quit alcohol intake (3) Mixed dyslipidemia: Code(s): E78.2 - Mixed hyperlipidemia Category: Medical Plan: Reviewed recent fasting lipid profile with patient with elevated triglycerides and low HDL cholesterol with normal LDL cholesterol . Stressed importance of adherence to low-cholesterol diet and regular exercise, at least 30 minutes 3 to 4 times a week. Advised patient to make healthy food choices, eat more fruits, vegetables, whole grains, wild caught fish and low-fat dairy. Advised to cut back or limit alcohol intake and cessation strongly recommended. Limit amount of meat and fried or fatty food products, as well as processed foods and fast foods. (4) Essential hypertension: Code(s): I10 - Essential (primary) hypertension Category: Medical Plan: Blood pressure at goal of less than 130/80. Continue lisinopril 20 mg daily. Reinforced importance of following a low sodium diet, smoking cessation, cutting back or avoidance of alcohol, getting regular exercise, and lowering stress levels. (5) Impaired fasting glucose: Code(s): R73.01 - Impaired fasting glucose Category: Medical Plan: Your previous fasting blood sugars were elevated above 100 mg/dL. Impaired glucose metabolism increases the risk for developing diabetes mellitus type 2, as well as heart attack and stroke later on. Lifestyle changes that promotes weight loss, healthy eating habits, and regular exercise are important, and can prevent the progression to diabetes (6) Needs flu shot: Code(s): Z23 - Encounter for immunization Plan: Flu vaccine given today (7) Advanced directives, counseling/discussion: Code(s): Z71.89 - Other specified counseling Plan: Initiated the conversation about Advanced Directives. Advanced Directives help patients prepare for current and future decisions about their medical treatment and place of care. Discussed with patient that it is a process where a patients current condition and prognosis are reviewed, their wishes for information regarding their illness are elicited, and likely medical dilemmas are presented and options discussed. Healthcare proxy form was completed in the past, MOLST form completed today. These forms can be amended as needed, reviewed yearly and make changes as needed Orders: Orders Comprehensive [place]. Panel Fast 06/18/24 E55.9 - Vitamin D deficiency, unspecified, E78.2 - Mixed hyperlipidemia, I10 - Essential (primary) hypertension, R73.01 - Impaired fasting glucose, R74.01 - Elevation of levels of liver transaminase levels, R74.8 - Abnormal levels of other serum enzymes Lipid Panel 06/18/24 E55.9 - Vitamin D deficiency, unspecified, E78.2 - Mixed hyperlipidemia, I10 - Essential (primary) hypertension, R73.01 - Impaired fasting glucose, R74.01 - Elevation of levels of liver transaminase levels, R74.8 - Abnormal levels of other serum enzymes Influenza [id number] Immunization 06/17/24 Z23 - Encounter for immunization Vitamin D 25-OH Total 06/18/24 E55.9 - Vitamin D deficiency, unspecified, E78.2 - Mixed hyperlipidemia, I10 - Essential (primary) hypertension, R73.01 - Impaired fasting glucose, R74.01 - Elevation of levels of liver transaminase levels, R74.8 - Abnormal levels of other serum enzymes PSA,Total (Free>4and<10) 06/18/24 E55.9 - Vitamin D deficiency, unspecified, E78.2 - Mixed hyperlipidemia, I10 - Essential (primary) hypertension, R73.01 - Impaired fasting glucose, R74.01 - Elevation of levels of liver transaminase levels, R74.8 - Abnormal levels of other serum enzymes US abdomen complete 06/17/24 F10.90 - Alcohol use, unspecified, uncomplicated, R74.01 - Elevation of levels of liver transaminase levels, R74.8 - Abnormal levels of other serum enzymes Hemoglobin A1c 06/18/24 R73.01 - Impaired fasting glucose
[2024-06-17 12:48] VITALS: BP 130/80
== END 2024-06-17 13:06 | disposition home or self-care (01) ==
PROVIDERS: PCP Internal Medicine; Visit Provider Internal Medicine
DX: R74.8 Abnormal levels of other serum enzymes (principal); R74.01 Elevation of levels of liver transaminase levels; E78.2 Mixed hyperlipidemia; I10 Essential (primary) hypertension; R73.01 Impaired fasting glucose; Z23 Encounter for immunization; Z71.89 Other specified counseling; Z00.00 Encounter for general adult medical examination without abnormal findings

== ENCOUNTER → 2024-06-17 11:54 | Outpatient (BNVA) | payer OTHER, SELFPAY | PROVIDERS: PCP Internal Medicine; Visit Provider Internal Medicine | DX: R74.8 Abnormal levels of other serum enzymes (principal); R74.01 Elevation of levels of liver transaminase levels; E78.2 Mixed hyperlipidemia; I10 Essential (primary) hypertension; R73.01 Impaired fasting glucose; Z71.89 Other specified counseling; Z23 Encounter for immunization | CPT/HCPCS: 90471; 90656 ==

== ENCOUNTER 2024-06-18 06:23 | Outpatient (REF) | payer MEDICARE, SELFPAY ==
[2024-06-18 10:48] LABS: Estimated Average Glucose 126 mg/dL; Hemoglobin A1C 170.4347 umol/L; Total Hemoglobin (HGBA1C) 4069.8249 umol/L
[2024-06-18 10:56] LABS: Alanine Aminotransferase 82 U/L (0-40); Albumin Level 4.3 g/dL (3.5-5.0); Alkaline Phosphatase 83 U/L (39-117); Anion Gap 14 (12-20); Aspartate Amino Transferase 69 U/L (5-37); Bilirubin Total 1.2 mg/dL (0.0-1.0); Blood Urea Nitrogen 13 mg/dL (9-16); Calcium 9.8 mg/dL (8.4-10.2); Carbon Dioxide 24 mmol/L (22-29); Chloride 101 mmol/L (96-108); Cholesterol 182 mg/dL (<200); Estimated Glomerular Filt Rate > 60; Glucose Fasting 129 mg/dL (60-99); HDL Cholesterol 31 mg/dL (>40); LDL Cholesterol Calculated 104 mg/dL (<100); Potassium 4.2 mmol/L (3.3-5.1); Sodium 135 mmol/L (135-145); Total Protein 7.8 g/dL (6.5-8.0); Triglycerides 236 mg/dL (<150)
[2024-06-18 11:13] LABS: Vitamin D 25-OH Total 50.5 ng/mL (>30)
[2024-06-18 11:16] LABS: PSA,Total (Free>4and<10) 0.74 ng/mL (0.00-4.00)
== END 2024-06-18 06:24 | disposition home or self-care (01) ==
LOC: HO.HMGCLDS 06:23
PROVIDERS: PCP Internal Medicine; Visit Provider Internal Medicine
DX: R73.01 Impaired fasting glucose (principal); R74.8 Abnormal levels of other serum enzymes; R74.01 Elevation of levels of liver transaminase levels; E55.9 Vitamin D deficiency, unspecified; E78.2 Mixed hyperlipidemia; I10 Essential (primary) hypertension; Z12.5 Encounter for screening for malignant neoplasm of prostate
CPT/HCPCS: 36415; 80053; 80061; 82306; 83036; 84153

== ENCOUNTER 2024-06-24 08:14 | Outpatient (REF) | payer MEDICARE, SELFPAY | END 2024-06-24 08:15 | disposition home or self-care (01) | LOC: HO.HMGCX 08:14 | PROVIDERS: PCP Internal Medicine; Visit Provider Internal Medicine | DX: R74.8 Abnormal levels of other serum enzymes (principal); R74.01 Elevation of levels of liver transaminase levels; F10.90 Alcohol use, unspecified, uncomplicated | CPT/HCPCS: 76700 ==

== ENCOUNTER 2024-08-29 06:31 | Outpatient (REF) | payer MEDICARE, SELFPAY ==
[2024-08-29 12:39] LABS: Alanine Aminotransferase 78 U/L (0-40); Albumin Level 4.3 g/dL (3.5-5.0); Alkaline Phosphatase 78 U/L (39-117); Anion Gap 10 (12-20); Aspartate Amino Transferase 62 U/L (5-37); Bilirubin Total 0.9 mg/dL (0.0-1.0); Blood Urea Nitrogen 20 mg/dL (9-16); Carbon Dioxide 28 mmol/L (22-29); Chloride 102 mmol/L (96-108); Cholesterol 172 mg/dL (<200); Estimated Glomerular Filt Rate > 60; Glucose Fasting 115 mg/dL (60-99); HDL Cholesterol 30 mg/dL (>40); LDL Cholesterol Calculated 101 mg/dL (<100); Potassium 4.5 mmol/L (3.3-5.1); Sodium 135 mmol/L (135-145); Total Protein 7.9 g/dL (6.5-8.0); Triglycerides 208 mg/dL (<150)
[2024-08-29 12:56] LABS: Estimated Average Glucose 120 mg/dL; Hemoglobin A1C 167.4448 umol/L; Hemoglobin A1c % 5.8 % (<6.0); Total Hemoglobin (HGBA1C) 4168.1274 umol/L; Vitamin D 25-OH Total 48.3 ng/mL (>30)
== END 2024-08-29 06:32 | disposition home or self-care (01) ==
LOC: HO.HMGCLDS 06:31
PROVIDERS: PCP Internal Medicine; Visit Provider Internal Medicine
DX: E55.9 Vitamin D deficiency, unspecified (principal); R73.01 Impaired fasting glucose; F10.90 Alcohol use, unspecified, uncomplicated; E78.2 Mixed hyperlipidemia; I10 Essential (primary) hypertension
CPT/HCPCS: 36415; 80053; 80061; 82306; 83036

== ENCOUNTER 2024-09-02 09:12 | Outpatient (AMB) | payer MEDICARE, SELFPAY ==
--- NOTE | 2024-09-02 09:17 | A.OFFVIS_ITS ---
Intake Vital Signs 09/02/24 09:18 Height 5 ft 4 in Weight 179 lb BMI 30.7 BP 120/70 Blood Pressure Location Lt brachial Position Sitting Pulse 80 Pulse Source Pulse Oximeter Pulse Oximetry (%) 97 Oxygen Delivery Method Room Air Intake Visit Reasons: SWV G0438 Intake Note: Pt is here today for his SWV: last colonoscopy 12/15/15 Allergies penicillin V Allergy (Unknown, Verified 06/17/24 12:34) rash Medication List - Last Reconciled 09/02/24 by Sridevi Garcia MD lisinopril 20 mg PO DAILY HPI SWV G0438 HPI Details AWV ? 63 year old male presents for his Annual Wellness Visit, initial visit.? He is up-to-date with his colonoscopy, last done by Dr. Andino in 2015 with normal findings, due for a recheck again in 2025. His last PSA check was done 07/08/2024 with normal results. He had a fasting lipid panel done 08/19/2024 which showed LDL cholesterol within normal limits, but low HDL and elevated triglyceride levels. His last fasting blood sugar was 1 50 mg/dL done 08/29/2024 but hemoglobin A1c was at 5.8%. He has been drinking alcoholic beverages regularly, but is starting to cut back He is up-to-date with his flu vaccine, Tdap, Prevnar 20 given today, recommended to get Shingrix vaccinnes. ? Medical / Social History Reviewed? Past Medical History ?Yes . ? [place] of Care / Care Team list updated ?Yes . ? Surgical/Hospitalization History ?Yes . ? Current Medications (including OTC and supplements) ?Yes . ? Family History ?Yes . ? Tobacco Control form ?Yes . ? AUDIT-C (Alcohol use) form ?Yes . ? Illicit drug use in Social History ?Yes . ? Current diagnosis of depression? ?No ? Appropriate PHQ2/PHQ9 completed ?Yes . ? Data entered by ?[employer] and reviewed by provider ? Fall Risk ? Fall History? Have you had any falls with injury in the past year? ?No . ? Have you had two or more falls in the past year? ?No . ? Fall Risk Assessment: ?No falls in the past year . ? HRA filled out by the patient, reviewed by Provider and scanned. ? AWV ? Balance? Romberg ?negative . ? Tandem walk ?Yes . ? Walk and Turn ?Yes . ? Rise from sit to stand ?Yes . ?Vision? Corrective lens ?Yes ? Vision screen ? Up-to-date, he is overdue to get an eye exam ?Hearing? Whisper test ?pass . ?Written Plan?Completed. See Patient Documents.? [facility] Medical History (Updated 09/02/24 @ 09:33 by Sridevi Garcia MD) Elevated serum GGT level Elevated transaminase level Alcohol use disorder Skin lesion of foot Vitamin D deficiency Annual visit for general adult medical examination with abnormal findings Impaired fasting glucose Mixed dyslipidemia Essential hypertension Surgical History Hx of colonoscopy History of appendectomy Family History Other Substance use disorder Social History Housing: House Alcohol intake: current Alcohol intake frequency: 0-2 drinks per day Alcohol type: beer Patient Tobacco Use Status: Current everyday Tobacco user Cigarette Packs Per Day: 0.5 e-Cigarette/Vaping Use: Never Used Current occupational status: employed Current occupation: lt handed, picking and packing Cognitive needs: No Hearing needs: No Vision needs: No Questionnaire Medicare Wellness Checkup [age] What gender do you identify with?: male During the past 4 weeks, how much have you been bothered by emotional problems such as feeling anxious, depressed, irritable, sad or downhearted, and blue?: not at all During the past 4 weeks, has your physical & emotional health limited your social activities with family, friends, neighbors, or groups?: quite a bit During the past 4 weeks, how much bodily pain have you generally had?: mild pain During the past 4 weeks, was someone available to help you if you needed & wanted help?: no, not at all During the past 4 weeks, what was the hardest physical activity you could do for at least 2 minutes?: heavy Can you get to places out of walking distance without help? (For eg., can you travel alone on buses, taxis or drive your car?): Yes Can you go shopping for groceries or clothes without someone's help?: No Can you prepare your own meals?: Yes Can you do your housework without help?: Yes Because of any health problems, do you need the help of another person with your personal care needs such as eating, bathing, dressing or getting around the house?: No Can you handle your own money without help?: Yes During the past 4 weeks, how would you rate your health in general?: fair During the past 4 weeks how have things been going for you?: good & bad parts about equal Are you having difficulties driving your car?: no Do you always fasten your seat belt when you are in a car?: yes, usually During past 4 weeks, have you been bothered by the following: never: Trouble e ating well?, Problems using the telephone? and Tiredness or fatigue?, seldom: Teeth or denture problems? and sometimes: Falling or dizzy when standing up and Sexual problems? Have you fallen 2 or more times in the past year?: No Are you afraid of falling?: Yes Are you a smoker?: yes, but I'm not ready to quit During the past 4 weeks, how many drinks of wine, beer, or other alcoholic beverages did you have?: 10 or more per week Do you exercise for about 20 minutes 3 or more times a week?: no, I usually do not exercise this much Have you been given information to help with the following?: no: Hazards in your house that might hurt you? and no: Keeping track of your medications? How often do you have trouble taking medicines the way you have been told to take them?: I always take medicine as prescribed How confident are you that you can control & manage most of your health problems?: not very confident What is your race?: or origin or descent Mini Mental State Exam (MMSE) Orientation What is the (year) (season) (date) (day) (month)?: year (2024), season (Winter), date (09/02/2024), day (Saturday) and month (August) Where are we (state) (county) (town or city) (hospital) (floor)?: state ([place]), county ([place]), town or city ([place]) and hospital/clinic ([facility]) Score Score: 9 Activity of Daily Living Bathing - sponge bath, tub bath or shower: receives no assistance (gets in/out by self, if usual bathing means Dressing - getting clothes from closets & drawers, including inner/outer garments & fasteners.: gets clothes & gets completely dressed without help Toileting - going to the 'toilet room' for urine/bowel elimination & cleaning self/arranging clothes: goes to toilet room, cleans self, arranges clothes without help Transfer: moves in & out of bed and chair without help (may use support object) Continence: controls urination/bowel movements completely by self Feeding: feeds self without help Total Score: 0 Information obtained from: patient Using telephone: independent Traveling: independent Shopping: independent Preparing meals: independent Housework: independent Taking medicine: independent Managing money: independent PHQ-9 Over the last 2 weeks, how often have you been bothered by any of the following problems? 1. Little interest or pleasure in doing things: not at all 2. Feeling down, depressed, or hopeless: not at all 3. Trouble falling or staying asleep, or sleeping too much: not at all 4. Feeling tired or having little energy: not at all 5. Poor appetite or overeating: not at all 6. Feeling bad about yourself - or that you are a failure or have let yourself or your family down: not at all 7. Trouble concentrating on things, such as reading the newspaper or watching television: not at all 8. Moving or speaking so slowly that other people could have noticed. Or the opposite - being so fidgety or restless that you have been moving around a lot more than usual: not at all 9. Thoughts that you would be better off or of hurting yourself in some way: not at all Total score: 0 Depression Screening Interpretation: Negative Depression Screening Done: Yes 18414 - PHQ-9 Billing: Yes Source: Developed by Drs. Carlos Hernandez, Jessica Wilson, Jonny Blackwell and colleagues, with an educational zoie from [employer]. Physical Exam Vital Signs: Last Vital Signs Pulse 80 09/02/24 09:18 BP 120/70 09/02/24 09:18 Pulse Ox 97 09/02/24 09:18 Oxygen Delivery Method Room Air 09/02/24 09:18 BMI result Body Mass Index 30.7 Immunizations pneumoc 20-jerman conj-dip cr(PF) 0.5 mL IM syringe Performing Provider: Sridevi Garcia MD [place] [facility] [place] [place] [facility] Administered by: Sushma Craft CMA on 09/02/24 09:37 Dose Route Admin Location Dispensed Lot Number Expiration Date [employer] Blower 0.5 mL IM Left Deltoid 0.5 mL [id number] 12/09/25 6617-5579-86 [employer] VIS Given Date VIS Provided VIS Publication Date 09/02/24 Single Vaccine 21 Eligibility Eligibility Date Funding Source Not [facility] Eligible 09/02/24 Private Results Reviewed Results Reviewed: Laboratory Tests 08/29/24 06:39 Estimat Average Glucose 120 Hemoglobin A1c % 5.8 Name: Humberto Porter Age/Sex: 63/M : 1960 Unit#: [id number] Attend Dr: Sridevi Garcia MD Re08/29/24 Status: DEP [facility] Disch: SPEC : [id number] KATHRINE: 08/29/24 STATUS: COMP REQ : [id number] RECD: 08/29/[address]: Sridevi Garcia MD COMP: 08/29/24 ENTERED: 08/29/[address]: ORDERED: CMP Fast, Lipid Panel, Vitamin D 25-OH Test Result Flag Reference Sodium 135 135-145 mmol/L Potassium 4.5 3.3-5.1 mmol/L CL 102 96-108 mmol/L CO2 28 22-29 mmol/L Gap 10 L 12-20 BUN 20 H 9-16 mg/dL Creat 0.74 0.5-1.4 mg/dL eGFR > 60 Chronic Kidney Disease: Estimated GFR < 60 mL/min/1.73m2 Severe Kidney Disease: Estimated GFR < 15 mL/min/1.73m2 FBS 115 H 60-99 mg/dL A fasting glucose from 100-125 mg/dl is considered impaired (pre-diabetes). CA 9.0 # 8.4-10.2 mg/dL Total Bili 0.9 0.0-1.0 mg/dL AST (GOT) 62 H 5-37 U/L ALT (GPT) 78 H 0-40 U/L Protein, Total 7.9 6.5-8.0 g/dL Alb 4.3 3.5-5.0 g/dL Triglyceride 208 H <150 mg/dL Desirable Triglyceride: less than 150 mg/dL Borderline High Triglyceride 150-199 mg/dL High Triglyceride: 200-499 mg/dL Very High Triglyceride: greater than or equal to 5OO mg/dL Cholesterol 172 <200 mg/dL Desirable Cholesterol: less than 200 mg/dL Borderline High Cholesterol: 200-239 mg/dL High Cholesterol: greater than 239 mg/dL LDL Calculated 101 H <100 mg/dL Desirable LDL: less than 100 mg/dL Near Optimal/Above Optimal LDL: 110-129 mg/dL Borderline High LDL: 130-159 mg/dL High LDL: 160-189 mg/dL Very High LDL: greater than or equal to 190 mg/dL HDL 30 L >40 mg/dL Desirable HDL: greater than 40 mg/dL Note: This HDL assay may give artificially low results in patients with liver disease. Alk Phos 78 39-117 U/L Vit D 25-OH Tot 48.3 >30 ng/mL Health Based Reference Values* < 20 ng/mL Deficient 20-30 ng/mL Insufficient > 30 ng/mL Sufficient Assessment & Plan Assessment & Plan (1) Encounter for initial annual wellness visit (AWV) in Medicare patient: Code(s): Z00.00 - Encounter for general adult medical examination without abnormal findings Plan: Medical wellness checklist reviewed, discussed with patient and updated. Copy given to patient. Up-to-date with his vaccines, but does not want to get the shingles vaccine or COVID booster, Prevnar 20 given today (2) Mixed dyslipidemia: Code(s): E78.2 - Mixed hyperlipidemia Plan: Reinforced importance of following a low-cholesterol diet and getting regular exercise, cutting back on all alcohol intake or quitting altogether recommended (3) Essential hypertension: Code(s): I10 - Essential (primary) hypertension Plan: Blood pressure at goal of less than 130/80. Continue with current medication. Reinforced importance of following a low sodium diet, getting regular exercise, and lowering stress levels. (4) Impaired fasting glucose: Code(s): R73.01 - Impaired fasting glucose Plan: Your previous fasting blood sugars were elevated above 100 mg/dL. Impaired glucose metabolism increases the risk for developing diabetes mellitus type 2, as well as heart attack and stroke later on. Lifestyle changes that promotes weight loss, healthy eating habits, and regular exercise are important, and can prevent the progression to diabetes (5) Alcohol use disorder: Code(s): F10.90 - Alcohol use, unspecified, uncomplicated Plan: Patient strongly advised to quit alcohol intake or cut back on his drinking, reviewed liver enzymes which have been elevated but is improving (6) Advanced directives, counseling/discussion: Code(s): Z71.89 - Other specified counseling Plan: Initiated the conversation about Advanced Directives. Advanced Directives help patients prepare for current and future decisions about their medical treatment and place of care. Discussed with patient that it is a process where a patients current condition and prognosis are reviewed, their wishes for information regarding their illness are elicited, and likely medical dilemmas are presented and options discussed. Healthcare proxy form MOLST form already completed. These forms can be amended as needed, reviewed yearly and make changes as needed Orders: Orders Pneumococcal 20 Immunization Today Z23 - Encounter for immunization Medications: Refilled lisinopril 20 mg PO DAILY 90 tabs 3RF I10 - Essential (primary) hypertension Quality Reporting (2019) Depression/Bipolar (159/160/161/177) PHQ-9: Total score: 0 Coding Level of Care Code Medicare First (G0438) Diagnoses Encounter for initial annual wellness visit (AWV) in Medicare patient Z00.00 Mixed dyslipidemia E78.2 Essential hypertension I10 Impaired fasting glucose R73.01 Alcohol use disorder F10.90 Advanced directives, counseling/discussion Z71.89 CPT Codes Advance Care Planning - Time spent: 16-45 minutes ([id number]) Additional Codes PHQ-9 - 41324 - PHQ-9 Billing: Yes ([id number]) Advance Care Planning Advance Care Planning discussion: Completed/Scanned Date of discussion: 09/02/24 Who was present: Patient Forms completed: Health Care Proxy and MOLST (Already done in 2023) Time spent: 16-45 minutes Actual minutes spent: 3
[2024-09-02 09:18] VITALS: BP 120/70; PULSE 80; O2SAT 97; BMI 30.7
== END 2024-09-02 09:53 | disposition home or self-care (01) ==
PROVIDERS: PCP Internal Medicine; Visit Provider Internal Medicine
DX: Z00.00 Encounter for general adult medical examination without abnormal findings (principal); E78.2 Mixed hyperlipidemia; I10 Essential (primary) hypertension; R73.01 Impaired fasting glucose; F10.90 Alcohol use, unspecified, uncomplicated; Z71.89 Other specified counseling; Z23 Encounter for immunization

== ENCOUNTER → 2024-09-02 09:12 | Outpatient (BNVA) | payer MEDICARE, SELFPAY | PROVIDERS: PCP Internal Medicine; Visit Provider Internal Medicine | DX: Z00.00 Encounter for general adult medical examination without abnormal findings (principal); Z23 Encounter for immunization; E78.2 Mixed hyperlipidemia; I10 Essential (primary) hypertension; R73.01 Impaired fasting glucose; F10.90 Alcohol use, unspecified, uncomplicated; Z71.89 Other specified counseling | CPT/HCPCS: 90471; 90677; 96127 ==

== ENCOUNTER 2025-03-03 07:35 | Outpatient (AMB) | payer MEDICARE, SELFPAY ==
--- NOTE | 2025-03-03 08:05 | A.OFFPC_ITS ---
Vital Signs 03/03/25 08:06 Height 5 ft 4 in Weight 179 lb BMI 30.7 BP 135/84 Blood Pressure Location Lt brachial Position Sitting Respiration 16 Pulse 67 Pulse Source Pulse Oximeter Temp 98.4 F Temp Source Oral Pulse Oximetry (%) 96 Oxygen Delivery Method Room Air Intake Visit Reasons: 7m f/u Intake Note: Pt is here for his 7 month f/u. 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 Accompanied by: Self / Same As Patient Allergies penicillin V Allergy (Unknown, Verified 03/03/25 08:15) rash Medication List - Last Reconciled 03/03/25 by Sridevi Garcia MD lisinopril 20 mg PO DAILY Tobacco use date assessed: 03/03/25 Fall risk assessment: No Falls in past year Dental Screening Dental Screen Date: 05/15/23 Did you have a dental visit in the last 12 months?: No Did you have a dental problem in the last 6 months where you did not have access to dental care?: No Was dental information given to patient?: Patient declined HPI 7m f/u HPI Details Old male with history of hypertension currently only taking lisinopril 20 mg daily, here today for his follow-up. Continues to smoke cigarettes, at least half a pack a day and drinks beer , now at 6 drinks per day on a regular basis. Liver enzymes were noted to be elevated on previous tests, - Essential Hypertension: The patient re ports taking his medication regularly, but experiences elevated blood pressure readings during clinic visits, possibly due to anxiety. - Alcohol Use Disorder: The patient cons umes approximately six beers daily, which most likely contributed to liver abnormalities noted on ultrasound and elevated liver enzymes. - Nicotine Dependence: The patient smoke s half a pack, cut down from a pack a day, of cigarettes daily, and has been smoking since the age of 26. - Hyperlipidemia: The patient has elevat ed triglycerides and low HDL levels [facility] Medical History Hypertriglyceridemia Smokes more than 1/2 pack of cigarettes per day Elevated serum GGT level Elevated transaminase level Alcohol use disorder Impaired fasting glucose Essential hypertension Surgical History Hx of colonoscopy History of appendectomy Family History Other Substance use disorder Social History Housing: House Alcohol intake: current Alcohol intake frequency: 0-2 drinks per day Alcohol type: beer Patient Tobacco Use Status: Current everyday Tobacco user Cigarette Packs Per Day: 0.5 e-Cigarette/Vaping Use: Never Used Current occupational status: employed Current occupation: lt handed, picking and packing Cognitive needs: No Hearing needs: No Vision needs: No Questionnaire PHQ-9 Over the last 2 weeks, how often have you been bothered by any of the following problems? 1. Little interest or pleasure in doing things: not at all 2. Feeling down, depressed, or hopeless: not at all 3. Trouble falling or staying asleep, or sleeping too much: not at all 4. Feeling tired or having little energy: several days 5. Poor appetite or overeating: not at all 6. Feeling bad about yourself - or that you are a failure or have let yourself or your family down: not at all 7. Trouble concentrating on things, such as reading the newspaper or watching television: not at all 8. Moving or speaking so slowly that other people could have noticed. Or the opposite - being so fidgety or restless that you have been moving around a lot more than usual: not at all 9. Thoughts that you would be better off or of hurting yourself in some way: not at all Total score: 1 Depression Screening Interpretation: Negative Depression Screening Done: Yes 93111 - PHQ-9 Billing: Yes Source: Developed by Drs. Carlos Hernandez, Jessica Wilson, Jonny Blackwell and colleagues, with an educational zoie from [employer] Thrive Questionnaire Date Thrive assessed: 02/25/25 I am a: Patient What is your living situation today?: I have a steady place to live Within the past 12 months, did the food you bought not last and you didn't have the money to get more?: Never true Within the past 12 months, did you worry whether your food would run out before you got money to buy more?: Never true Do you have trouble paying for medicines?: No Do you have trouble getting transportation to medical appointments?: No Do you have trouble paying your heating and electricity bill?: No Do you have trouble taking care of your child, family member or friend?: No Do you have trouble with day-to-day activities such as bathing, preparing meals, shopping, managing finances, etc.?: No Are you currently unemployed and looking for a job?: No Are you interested in more education?: No Please select the resources that you would like help with: None Currently or been in a relationship where the following occur: No concerns reported THRIVE Score: 0 AUDIT C Alcohol Use Questionnaire (AUDIT-C) 1. How often do you have a drink containing alcohol?: 4 or more times a week Total Score: 4 MIRIAN-7 AMB Questionnaire MIRIAN-7 Date MIRIAN - 7 assessed: 03/03/25 Feeling nervous, anxious, or on edge: 0 = Not at all Not being able to stop or control worryin = Not at all Worrying too much about different things: 0 = Not at all Trouble relaxin = Not at all Being so restless that it is hard to sit still: 0 = Not at all Becoming easily annoyed or irritable: 0 = Not at all Feeling afraid as if something awful might happen: 0 = Not at all Total MIRIAN-7 score (0-4 normal; 5-9 mild; 10-14 moderate; 15-21 severe): 0 Source: Developed by Drs. Carlos Hernandez, Jessica Wilson, Jonny Blackwell and colleagues, with an educational zoie from [employer] MIRIAN-7 Assessment Billing MIRIAN-7 Assessment Tool: MIRIAN-7 Assessment 93654 Review of Systems Const Denies fatigue, Denies fever(s), Denies headache(s) and Denies weakness Eyes Denies change in vision and Reports requires corrective lenses (For reading, overdue for eye exam) ENT Denies dizziness, Denies headache(s), Denies nasal congestion, Denies nasal discharge and Denies sore throat Card Denies chest pain, Denies lightheadedness, Denies palpitations and Denies dyspnea Resp Denies chest congestion, Denies cough, Denies dyspnea and Denies wheezing GI Denies abdominal pain, Denies change in bowel habits and Denies heartburn Denies dysuria, Denies urinary frequency and Denies urinary urgency Musc Reports arthralgias (Right shoulder, followed by ortho) and Reports stiffness Skin/Breast Denies lesions and Denies rash Neuro Denies dizziness, Denies headache(s) and Denies weakness Psych Reports no additional complaints Endo Denies fatigue, Denies polydipsia, Denies polyuria and Denies palpitations Sergio/Lymph Denies easy bruising Aller/Immun Denies seasonal rhinorrhea and Denies wheezing Physical exam (Primary Care) Vital Signs: Last Vital Signs Temp 98.4 F 03/03/25 08:06 Pulse 67 03/03/25 08:06 Resp 16 03/03/25 08:06 BP 135/84 03/03/25 08:06 Pulse Ox 96 03/03/25 08:06 Oxygen Delivery Method Room Air 03/03/25 08:06 BMI result Body Mass Index 30.7 Tobacco/Smoking Status: Tobacco use Status Tobacco use date assessed 03/03/25 03/03/25 08:11 Patient Tobacco Use Status Current everyday Tobacco 03/03/25 08:11 e-Cigarette/Vaping Use Never Used 03/03/25 08:11 Depression Screening Interpretation: Negative Thrive Assessment: Date of Thrive Assessment Date Thrive assessed 02/25/25 03/03/25 08:11 Currently or been in a relationship where the following occur: No concerns reported Const General: no acute distress and alert Nutritional Appearance: obese Orientation/consciousness: patient oriented x3 HENMT Head: Yes normocephalic Ears: external ears normal, TM's normal bilaterally and EAC's normal General nose exam: Normal external nose present Face and sinus: Yes face symmetric Mouth: Normal oral and palatal mucosa present and moist mucous membranes Eyes General: appearance normal, both eyes and all related structures Neck Neck: Yes full ROM and Yes no lymphadenopathy Resp Effort & Inspection: normal respiratory effort and able to speak in complete sentences Auscultation: clear to auscultation bilaterally Cardio Rate: regular rate Rhythm: regular rhythm Heart sounds: S1 normal heart sound present and S2 normal heart sound present GI Inspection: Yes obesity Palpation (GI): Soft to palpation, nontender, no guarding and no masses Auscultation: normal bowel sounds General: Yes no CVA tenderness Male General Exam: Yes normal external exam Back/Spine/Pelvis Back: no CVA tenderness and No back tenderness Neuro General: patient oriented x3, gait normal, moves all extremities, Normal light touch and pain sensation, no focal motor deficits and CN's II-XI intact bilaterally Extrem General: Yes full ROM, Yes no joint enlargement, Yes no clubbing, cyanosis or edema, Yes no calf tenderness and Yes normal gait Psych Appearance: grossly normal Mental Status: mental status grossly normal Speech and movement: Normal speech and movement present Affect: normal affect Attitude: cooperative Coding Level of Care Code Est Pt Level 4 (33323) Diagnoses Smokes more than 1/2 pack of cigarettes per day F17.210 Essential hypertension I10 Impaired fasting glucose R73.01 Alcohol use disorder F10.90 Elevated transaminase level R74.01 Additional Codes MIRIAN-7 Assessment Billing - MIRIAN-7 Assessment Tool: MIRIAN-7 Assessment 61176 ([id number]) PHQ-9 - 77005 - PHQ-9 Billing: Yes ([id number]) Assessment & Plan Assessment & Plan (1) Smokes more than 1/2 pack of cigarettes per day: Code(s): F17.210 - Nicotine dependence, cigarettes, uncomplicated Category: Social Hx (2) Essential hypertension: Code(s): I10 - Essential (primary) hypertension Category: Medical (3) Impaired fasting glucose: Code(s): R73.01 - Impaired fasting glucose Category: Medical (4) Alcohol use disorder: Code(s): F10.90 - Alcohol use, unspecified, uncomplicated Category: Medical (5) Elevated transaminase level: Code(s): R74.01 - Elevation of levels of liver transaminase levels Category: Medical Plan The patient will undergo a lung cancer screening with a low-dose CT scan due to his smoking history. It is crucial to address his alcohol use disorder to prevent further liver damage, and he is advised to reduce his alcohol intake significantly. The patient is encouraged to quit smoking to lower the risk of lung and bladder cancer, with support available if he chooses to pursue cessation. Hypertension stable and controlled on lisinopril will continue on current dose. Reinforced importance of following a low-cholesterol diet and getting regular exercise. Blood work will be ordered to monitor liver function and lipid levels, given the current abnormalities. Additionally, the patient is advised to receive the shingles vaccine to maintain his immunization status. Patient was informed and verbally consented to the use of an ambient scribe for clinic note documentation during this visit. Orders: Orders Comprehensive [place]. Panel Fast Today E78.1 - Pure hyperglyceridemia, F10.90 - Alcohol use, unspecified, uncomplicated, F17.210 - Nicotine dependence, cigarettes, uncomplicated, I10 - Essential (primary) hypertension, R73.01 - Impaired fasting glucose, R74.01 - Elevation of levels of liver transaminase levels, R74.8 - Abnormal levels of other serum enzymes Complete Blood Count Auto Diff Today E78.1 - Pure hyperglyceridemia, F10.90 - Alcohol use, unspecified, uncomplicated, F17.210 - Nicotine dependence, cigarettes, uncomplicated, I10 - Essential (primary) hypertension, R73.01 - Impaired fasting glucose, R74.01 - Elevation of levels of liver transaminase levels, R74.8 - Abnormal levels of other serum enzymes Lipid Panel Today E78.1 - Pure hyperglyceridemia, F10.90 - Alcohol use, unspecified, uncomplicated, F17.210 - Nicotine dependence, cigarettes, uncomplicated, I10 - Essential (primary) hypertension, R73.01 - Impaired fasting glucose, R74.01 - Elevation of levels of liver transaminase levels, R74.8 - Abnormal levels of other serum enzymes PSA,Total (Free>4and<10) Today E78.1 - Pure hyperglyceridemia, F10.90 - Alcohol use, unspecified, uncomplicated, F17.210 - Nicotine dependence, cigarettes, u ncomplicated, I10 - Essential (primary) hypertension, R73.01 - Impaired fasting glucose, R74.01 - Elevation of levels of liver transaminase levels, R74.8 - Abnormal levels of other serum enzymes Hemoglobin A1c Today E78.1 - Pure hyperglyceridemia, F10.90 - Alcohol use, unspecified, uncomplicated, F17.210 - Nicotine dependence, cigarettes, uncomplicated, I10 - Essential (primary) hypertension, R73.01 - Impaired fasting glucose, R74.01 - Elevation of levels of liver transaminase levels, R74.8 - Abnormal levels of other serum enzymes Referrals Lung Cancer Screening Referral F17.210 - Nicotine dependence, cigarettes, uncomplicated
[2025-03-03 08:06] VITALS: BP 135/84; PULSE 67; RESP 16; TEMP 36.9; O2SAT 96; BMI 30.7
== END 2025-03-03 12:03 | disposition home or self-care (01) ==
LOC: HO.HMCC 07:35
PROVIDERS: PCP Internal Medicine; Visit Provider Internal Medicine
DX: F17.210 Nicotine dependence, cigarettes, uncomplicated (principal); I10 Essential (primary) hypertension; R73.01 Impaired fasting glucose; F10.90 Alcohol use, unspecified, uncomplicated; R74.01 Elevation of levels of liver transaminase levels

== ENCOUNTER → 2025-03-03 07:35 | Outpatient (BNVA) | payer MEDICARE, SELFPAY | PROVIDERS: PCP Internal Medicine; Visit Provider Internal Medicine | DX: I10 Essential (primary) hypertension (principal); R73.01 Impaired fasting glucose; F10.90 Alcohol use, unspecified, uncomplicated; R74.01 Elevation of levels of liver transaminase levels; F17.210 Nicotine dependence, cigarettes, uncomplicated; Z71.6 Tobacco abuse counseling | CPT/HCPCS: 96127; 99212 ==

== ENCOUNTER 2025-03-05 06:54 | Outpatient (REF) | payer MEDICARE, SELFPAY ==
[2025-03-05 10:16] LABS: MANUAL DIFF FLAG NO
[2025-03-05 10:21] LABS: Hematocrit 46.8 % (42.0-52.0); Hemoglobin 15.6 g/dl (14.0-18.0); Imm Gran Abs Auto 0.07 X10*3/uL (0.00-0.03); Imm Gran Pct Auto 0.9 % (0.0-0.4); Lymphocytes Absolute Auto 2.4 X10*3/uL (1.2-4.9); Mean Corpuscular HGB Conc 33.3 g/dl (31.0-36.0); Mean Corpuscular Hemoglobin 29.3 pg (27.0-33.0); Mean Corpuscular Volume 87.8 fL (80.0-98.0); NRBC Abs Auto 0.000 X10*3/uL (0.0-0.012); NRBC Pct Auto 0.0 /100WBC (0.0-0.2); Platelet Count 207 X10*3/uL (160-400); Red Blood Count 5.33 X10*6/uL (4.60-5.80); White Blood Count 7.8 X10*3/uL (4.8-10.8)
[2025-03-05 10:34] LABS: Hemoglobin A1C 158.9811 umol/L; Total Hemoglobin (HGBA1C) 3974.0337 umol/L
[2025-03-05 10:52] LABS: Alanine Aminotransferase 85 U/L (0-40); Albumin Level 4.6 g/dL (3.5-5.0); Alkaline Phosphatase 84 U/L (39-117); Anion Gap 14 (12-20); Aspartate Amino Transferase 68 U/L (5-37); Blood Urea Nitrogen 19 mg/dL (9-16); Calcium 9.2 mg/dL (8.4-10.2); Carbon Dioxide 24 mmol/L (22-29); Chloride 102 mmol/L (96-108); Cholesterol 179 mg/dL (<200); Estimated Glomerular Filt Rate > 60; HDL Cholesterol 29 mg/dL (>40); Potassium 4.5 mmol/L (3.3-5.1); Sodium 135 mmol/L (135-145); Total Protein 7.5 g/dL (6.5-8.0); Triglycerides 306 mg/dL (<150)
[2025-03-05 10:58] LABS: PSA,Total (Free>4and<10) 0.94 ng/mL (0.00-4.00)
== END 2025-03-05 06:55 | disposition home or self-care (01) ==
LOC: HO.HMGCLDS 06:54
PROVIDERS: PCP Internal Medicine; Visit Provider Internal Medicine
DX: I10 Essential (primary) hypertension (principal); E78.2 Mixed hyperlipidemia; E78.1 Pure hyperglyceridemia; E55.9 Vitamin D deficiency, unspecified; R74.8 Abnormal levels of other serum enzymes; R73.01 Impaired fasting glucose; R74.01 Elevation of levels of liver transaminase levels; F10.90 Alcohol use, unspecified, uncomplicated; F17.210 Nicotine dependence, cigarettes, uncomplicated
CPT/HCPCS: 36415; 80053; 80061; 83036; 84153; 85025